=== PATIENT | female | born 1955 | race Hispanic/Latino ===

== ENCOUNTER → 2019-06-29 | Outpatient (CLI) | payer OTHER | END | disposition home or self-care (01) | LOC: OIH 10:00 | PROVIDERS: ATTEND Family Medicine | DX: R05 Cough (principal) | CPT/HCPCS: 71046 ==

== ENCOUNTER → 2019-12-29 | Outpatient (CLI) | payer OTHER | END | disposition home or self-care (01) | LOC: OIH 10:38 | PROVIDERS: ATTEND Family Medicine | DX: M25.78 Osteophyte, vertebrae (principal); R52 Pain, unspecified | CPT/HCPCS: 72100 ==

== ENCOUNTER → 2020-11-14 | Outpatient (CLI) | payer OTHER | END | disposition home or self-care (01) | LOC: OIH 09:33 | PROVIDERS: ATTEND Family Medicine | DX: M25.512 Pain in left shoulder (principal) | CPT/HCPCS: 73030 ==